=== PATIENT | female | born 1955 | race Caucasian/White ===

== ENCOUNTER → 2016-12-17 13:51 | Outpatient (CLI) | payer OTHER ==
[2013-07-05 09:10] VITALS: BMI 25.0
[~2016-12-17 13:51] MED LIST: MOBIC7.5 MG PO; NORCO 10/325 TA1 TA1 PO; PAMELOR10 MG PO; RECLAST 55 MG/100 M IV
== END | disposition home or self-care (01) ==
LOC: D.LAB 13:30 → D.LABREF 13:51
DX: Z11.59 Encounter for screening for other viral diseases (principal)

== ENCOUNTER → 2017-03-06 15:06 | Outpatient (CLI) | payer OTHER ==
[2013-07-05 09:10] VITALS: BMI 25.0
== END | disposition home or self-care (01) ==
LOC: D.MRI 15:06
DX: M25.571 Pain in right ankle and joints of right foot (principal)

== ENCOUNTER 2017-07-08 05:32 | Day surgery (SDC) | payer OTHER ==
[2017-07-07 14:01] LABS: HEMATOCRIT 45.3 % (36.0-48.0); MCHC 33.1 g/dL (31.0-37.0); MCV 90.6 fL (80.0-100.0); MEAN PLATELET VOLUME 9.2 fL (7.4-10.4); RDW 13.7 % (11.5-14.5); WBC 5.6 10x3/uL (4.8-10.8)
[~2017-07-08] VITALS: Ht 152.4 cm; Wt 60.3 kg
--- NOTE | ~2017-07-08 | OP ---
PATIENT NAME: YURIDIA VIVAR MEDICAL RECORD: [id number] LOCATION:[facility] ADMISSION DATE: SURGEON: JADYN MONTANO DPM DATE OF OPERATION: 07/08/2017 PREOPERATIVE DIAGNOSIS: Posterior tibial tendon partial rupture, right foot. POSTOPERATIVE DIAGNOSIS: Posterior tibial tendon partial rupture, right foot. PROCEDURE: Posterior tibial tendon repair, right foot with debridement. ANESTHESIA: Preoperative popliteal block per the anesthesia department as well as intraoperative general anesthesia. HEMOSTASIS: Right thigh tourniquet at 350 mmHg. PATHOLOGY: Specimen sent for gross and micro identification. PREOPERATIVE DETAILS: The patient was taken to the or and placed on the operating table in supine position, this was followed by induction of general anesthesia. The right extremity was then prepped and draped in the usual aseptic technique followed by exsanguination of extremity and inflation of tourniquet. A 15 blade was used to create a 10 cm linear incision over the medial aspect of the right ankle along the coursing of the posterior tibial tendon. The incision was deepened down through subcutaneous tissue. The retinaculum and tendon sheath were visualized and incised exposing the posterior tibial tendon. Upon initial inspection, there were some adhesions of the tendon sheaths to the tendon itself at the distal medial malleolus. Once this was freed and inspection of the tendon was performed, there was some tenosynovitis noted. Along the coursing of the tendon, there was a significant enlargement from partial rupture on the lateral aspect of the tendon as it coursed along the area of the deltoid ligament. This was quite large and firm. This was excised sharply debulking the tendon in that area. This allowed gliding of the tendon in a much more anatomical way. The wound was then flushed and tenosynovitic material was excised sharply. Wound was flushed again. At this time, the tendon sheath and retinaculum were repaired with 2-0 Vicryl. The subcutaneous tissue was reapproximated with 4-0 Rapide and the skin was closed with 4-0 Rapide in a subcuticular technique followed by Dermabond, Adaptic, 4 x 4, and Conform were used to dress the wound followed by Coban. Tourniquet was deflated. POSTOPERATIVE DETAILS: The patient tolerated the procedure well and left the OR with vital signs stable and vascular status at preoperative levels. The patient was transported to recovery per anesthesia in stable condition. TRANSINT:[id number] Voice Confirmation ID: [id number] DOCUMENT ID: [id number] OPERATIVE REPORT [id number] YURIDIA VIVAR MCKAY DPM at 0749 CC: [id number] DICTATION DATE: 07/08/17 0834 [employer]UM[employer] SERVICES MANAGER: 07/08/17 1135 [facility] 07/08/17 [place] [id number]
[~2017-07-08 05:32] MED LIST changes: +LODINE400 MG PO; +PRAVACHOL40 MG PO; +PROLIA INJ 660 MG/M1 IJ
[2017-07-08 05:53] VITALS: BP 127/68; Ht 152.4 cm; Wt 60.3 kg
== END 2017-07-08 10:15 | disposition home or self-care (01) ==
LOC: D.OPS 05:32 → D.PAN 07:00 → D.OPS 07:00
PROVIDERS: Anesthesiology
DX: M76.821 Posterior tibial tendinitis, right leg (principal); Z01.812 Encounter for preprocedural laboratory examination; Z01.810 Encounter for preprocedural cardiovascular examination

== ENCOUNTER → 2017-12-01 15:11 | Outpatient (CLI) | payer OTHER ==
[2017-07-08 05:53] VITALS: BMI 26.0
== END | disposition home or self-care (01) ==
LOC: D.CT 15:11
DX: I88.9 Nonspecific lymphadenitis, unspecified (principal)